=== PATIENT | female | born 1965 | race Caucasian/White ===

== ENCOUNTER 2016-08-10 18:42 | Emergency (ER) | payer MEDICARE, BC ==
[~2016-08-10 18:42] MED LIST: ALBUTEROL 0.5ML INH; ALBUTEROL17 GM INH; ALPRAZOLAM PO; AMITRYPTYLINE PO; BROM-PSEUD-DM118 ML PO; COMBIVENT U/D3 M1 INH; COMPAZINE10 M1 PO; FLEXERIL10 MG PO; HYCODAN60 ML 5MG/ PO; KEFLEX500 MG PO; KETOPROFEN PO; LEXAPRO PO; PHENERGAN VC W120 M1 PO; PHENERGAN25 M1 DOB; PREDNISONE PO; PREVACID PO; TESSALON200 MG PO; TUSSIONEX PENN473 ML PO; VICODIN 5/1 TAB 5/50 PO; VOLTAREN75 MG PO; WELLBUTRIN100 MG PO; ZITHROMAX PO; ZOFRANODT PO; ZOLOFT PO; ZOLOFT100 MG PO
[2016-08-10] MEDS ORDERED: MEDROL DOSEPAK4 MG DOB (18:58)
== END 2016-08-10 18:58 | disposition home or self-care (01) ==
LOC: SED 18:42
DX: L23.7 Allergic contact dermatitis due to plants, except food (principal); F32.9 Major depressive disorder, single episode, unspecified; F41.9 Anxiety disorder, unspecified; J45.909 Unspecified asthma, uncomplicated; Z90.710 Acquired absence of both cervix and uterus; Z79.899 Other long term (current) drug therapy
CPT/HCPCS: 96372; 99283; J1040

== ENCOUNTER 2016-09-29 21:54 | Emergency (ER) | payer MEDICARE ==
[~2016-09-29 21:54] MED LIST changes: +MEDROL DOSEPAK4 MG DOB
== END 2016-09-29 23:58 | disposition home or self-care (01) ==
LOC: SED 21:54
DX: R21 Rash and other nonspecific skin eruption (principal); J45.909 Unspecified asthma, uncomplicated; Z90.710 Acquired absence of both cervix and uterus; Z90.49 Acquired absence of other specified parts of digestive tract; Z98.890 Other specified postprocedural states
CPT/HCPCS: 99283